=== PATIENT | male | born 1950 | race Caucasian/White ===

== ENCOUNTER 2019-04-05 15:32 | Emergency (ER) | payer OTHER ==
[~2019-04-05] VITALS: Ht 180.3 cm; Wt 106.4 kg
[2019-04-05 15:39] VITALS: BP 141/89
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
[2019-04-05 16:23] LABS: BASO % 1 % (0-3); EOS # 0.4 x10^3/uL (0.0-0.7); EOS % 5 % (0-3); HEMATOCRIT 43.9 % (39.0-53.0); HEMOGLOBIN 15.1 g/dL (13.0-17.5); LYMPH # 2.9 x10^3/uL (1.0-4.8); LYMPH % 37 % (24-48); MEAN CORPUSCULAR HEMOGLOBIN 33 pg (25-35); MEAN CORPUSCULAR HGB CONC 34 g/dL (31-37); MEAN CORPUSCULAR VOLUME 96 fL (79-100); MONO # 0.5 x10^3/uL (0.0-1.1); MONO % 6 % (0-9); NEUT % 51 % (31-73); PLATELET COUNT 207 x10^3/uL (140-400); RED BLOOD COUNT 4.56 x10^6/uL (4.30-5.70); RED CELL DISTRIBUTION WIDTH 12.7 % (11.5-14.5); WHITE BLOOD COUNT 7.9 x10^3/uL (4.0-11.0)
[2019-04-05 16:31] LABS: ALBUMIN 3.4 g/dL (3.4-5.0); CALCIUM 8.5 mg/dL (8.5-10.1); GFR 73.9; POTASSIUM 3.8 mmol/L (3.5-5.1); TOTAL BILIRUBIN 0.3 mg/dL (0.2-1.0); TOTAL PROTEIN 6.8 g/dL (6.4-8.2)
[2019-04-05 16:56] LABS: BACTERIA,URINE 0 /HPF (0-FEW); BILIRUBIN,URINE NEG (NEG); CLARITY,URINE CLEAR; COLOR,URINE YELLOW; GLUCOSE,URINE NEG (NEG); NITRITE,URINE NEG (NEG); RBC,URINE 0 /HPF (0-2); SQUAMOUS EPITHELIAL CELL,UR OCC /LPF; UROBILINOGEN,URINE 1 mg/dL (0.2 mg/dL); WBC,URINE OCC /HPF (0-4)
--- NOTE | 2019-04-05 17:56 | EKG ---
[address] [address] Test Date: 2019-04-05 Test Time: 16:01:43 Pat Name: ALEXA DEL VALLE Department: Room: Gender: M Technical Intern: : 1950 Requested By: KYLAH APPIAH Order Number: [id number] Reading MD: Measurements Intervals [place] Rate: 74 P: 51 [place]: 160 QRS: 28 QRSD: 74 T: 76 QT: 374 QTc: 416 Interpretive Statements SINUS RHYTHM QRS(T) CONTOUR ABNORMALITY CONSIDER ANTEROLATERAL MYOCARDIAL DAMAGE POSSIBLY ABNORMAL ECG RI6.01 No previous ECG available for comparison
[2019-04-05] MEDS ORDERED: ESCITALOPRAM OXA5 MG PO (18:36)
[2019-04-05] MEDS ORDERED: ESCITALOPRAM OX10 MG PO (18:37)
== END 2019-04-05 19:14 | disposition home or self-care (01) ==
LOC: ER 15:32
DX: Z00.8 Encounter for other general examination (principal); F03.90 Unspecified dementia, unspecified severity, without behavioral disturbance, psychotic disturbance, mood disturbance, and anxiety; F32.9 Major depressive disorder, single episode, unspecified; F41.9 Anxiety disorder, unspecified; J45.909 Unspecified asthma, uncomplicated; K21.9 Gastro-esophageal reflux disease without esophagitis; E78.00 Pure hypercholesterolemia, unspecified; Z88.1 Allergy status to other antibiotic agents; Z88.6 Allergy status to analgesic agent
CPT/HCPCS: 36415; 80053; 81001; 83540; 83550; 83735; 85025; 93005; 99285

== ENCOUNTER 2019-09-19 22:59 | Emergency (ER) | payer MEDICARE, OTHER ==
[~2019-09-19] VITALS: Ht 180.3 cm; Wt 109.3 kg
[~2019-09-19 22:59] MED LIST: ESCITALOPRAM OX10 MG PO; ESCITALOPRAM OXA5 MG PO
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
--- NOTE | 2019-09-19 23:49 | RAD ---
AP chest. HISTORY: Mental status evaluation, weakness, confusion AP view was taken of the chest. Lungs are free of infiltrates. Heart is normal in size. There is no pleural effusion. There is a hiatus hernia behind the heart. There is linear scarring or atelectasis in the left lung base. IMPRESSION: 1. Left base linear scarring or atelectasis. 2. Moderate-sized hiatus hernia. 3. No other acute chest disease. Electronically signed by: Espinoza Viera MD (09/19/2019 11:45 PM) [facility]
--- NOTE | 2019-09-19 23:53 | RAD ---
Exam: CT head and cervical spine without contrast INDICATION: Mental status change TECHNIQUE: Sequential axial images through the head and cervical spine were obtained without the administration of IV contrast. Comparisons: 01/06/2018 FINDINGS: Head: No focal parenchymal lesion or hemorrhage is identified. There is no midline shift or sulcal effacement. Patchy hypodensity in the periventricular white matter which appears similar when compared to the prior exam. No acute vascular territory infarction is identified. Chambers-white distinction is preserved. The ventricular system is within normal limits without compression hydrocephalus. The basal cisterns are well maintained. The visualized portions of the paranasal sinuses and mastoid air cells are well-pneumatized. No acute fractures. Cervical spine: There is straightening of cervical spine which may be positional. Vertebral body heights are well-maintained. Fracture to the cervical spine is not identified. Multilevel spondylotic change in the cervical spine with degenerative disc disease greatest at C5-C6 and C6-C7. Visualized paraspinal soft tissues are unremarkable. IMPRESSION: 1. No acute intracranial abnormality. 2. Negative CT C-spine for acute traumatic injury. Exposure: One or more of the following in the visualized dose reduction techniques were utilized for this examination: 1. Automated exposure control 2. Adjustment of the MA and/or KV according to patient size Use of iterative of reconstructive technique Electronically signed by: Will Muñiz MD (09/19/2019 11:50 PM) [facility]
--- NOTE | 2019-09-20 00:03 | EKG ---
[address] [address] Test Date: 2019-09-19 Test Time: 23:55:12 Pat Name: ALEXA DEL VALLE Department: Room: Gender: M Quality Assurance Supervisor Body: : 1950 Requested By: YESENIA SALTER Order Number: [id number] Reading MD: Measurements Intervals [place] Rate: 74 P: [place]: QRS: 2 QRSD: 72 T: 67 QT: 396 QTc: 440 Interpretive Statements IRREGULAR RHYTHM, NO P-WAVE FOUND OTHERWISE NORMAL ECG RI6.01 No previous ECG available for comparison
[2019-09-20 00:14] LABS: BASO # 0.1 x10^3/uL (0.0-0.2); BASO % 1 % (0-3); EOS # 0.4 x10^3/uL (0.0-0.7); EOS % 6 % (0-3); HEMATOCRIT 43.3 % (39.0-53.0); HEMOGLOBIN 14.9 g/dL (13.0-17.5); LYMPH % 41 % (24-48); MEAN CORPUSCULAR HEMOGLOBIN 33 pg (25-35); MEAN CORPUSCULAR HGB CONC 35 g/dL (31-37); MEAN CORPUSCULAR VOLUME 96 fL (79-100); MONO # 0.5 x10^3/uL (0.0-1.1); MONO % 7 % (0-9); NEUT # 3.4 x10^3uL (1.8-7.7); NEUT % 45 % (31-73); PLATELET COUNT 192 x10^3/uL (140-400); RED BLOOD COUNT 4.51 x10^6/uL (4.30-5.70); RED CELL DISTRIBUTION WIDTH 12.4 % (11.5-14.5); WHITE BLOOD COUNT 7.4 x10^3/uL (4.0-11.0)
[2019-09-20 00:29] LABS: CALCIUM 8.1 mg/dL (8.5-10.1); CREATININE 0.9 mg/dL (0.7-1.3); GFR 83.4; POTASSIUM 3.9 mmol/L (3.5-5.1)
[2019-09-20 00:31] LABS: BILIRUBIN,URINE NEG (NEG); CLARITY,URINE CLEAR; COLOR,URINE YELLOW; GLUCOSE,URINE NEG (NEG); NITRITE,URINE NEG (NEG); RBC,URINE 0 /HPF (0-2)
[2019-09-20 00:32] LABS: BACTERIA,URINE 0 /HPF (0-FEW); SQUAMOUS EPITHELIAL CELL,UR OCC /LPF
[2019-09-20 00:34] LABS: BARBITURATES NEG (NEG); BENZODIAZEPINES NEG (NEG); CANNABINOIDS NEG (NEG); COCAINE NEG (NEG); METHADONE NEG (NEG); OPIATES NEG (NEG); PHENCYCLIDINE NEG (NEG)
[2019-09-20 00:37] LABS: AMPHETAMINE/METHAMPHETAMINE NEG (NEG)
[2019-09-20 01:07] LABS: SEDIMENTATION RATE 7 (0-15)
[2019-09-20 03:15] VITALS: BP 155/92
== END 2019-09-20 03:22 | disposition home or self-care (01) ==
LOC: ER 22:59
DX: G30.9 Alzheimer's disease, unspecified (principal); F02.80 Dementia in other diseases classified elsewhere, unspecified severity, without behavioral disturbance, psychotic disturbance, mood disturbance, and anxiety; F41.9 Anxiety disorder, unspecified; F32.9 Major depressive disorder, single episode, unspecified; J45.909 Unspecified asthma, uncomplicated; K21.9 Gastro-esophageal reflux disease without esophagitis; Z88.1 Allergy status to other antibiotic agents; Z88.6 Allergy status to analgesic agent; Z86.73 Personal history of transient ischemic attack (TIA), and cerebral infarction without residual deficits
CPT/HCPCS: 36415; 70450; 71045; 72125; 80048; 80307; 81001; 82140; 82550; 83735; 83880; 84484; 85025; 85610; 85651; 85730; 86592; 86705; 86709; 86803; 87086; 87340; 93005; 99285; G0480